=== PATIENT | male | born 1990 | race Caucasian/White ===

== ENCOUNTER 2019-05-31 23:00 | Emergency (ER) | payer OTHER ==
[~2019-05-31] VITALS: Ht 177.8 cm; Wt 70.0 kg
[2019-05-31 23:07] VITALS: BP 145/85; PULSE 111; RESP 18; Ht 177.8 cm; Wt 70.0 kg
== END 2019-05-31 23:20 | disposition home or self-care (01) ==
LOC: E/R 23:00
DX: T75.4XXA Electrocution, initial encounter (principal); W86.8XXA Exposure to other electric current, initial encounter
CPT/HCPCS: 93005